=== PATIENT | male | born 1980 | race Caucasian/White ===

== ENCOUNTER 2016-07-03 12:09 | Emergency (ER) | payer OTHER ==
[~2016-07-03] VITALS: Ht 182.9 cm; Wt 86.9 kg
--- NOTE | 2016-07-03 13:16 | Diagnostic Imaging Report ---
EXAMINATION: Left shoulder, three views. COMPARISON: None. HISTORY: 36-year-old male, status post fall. Left shoulder and clavicle pain. FINDINGS: The acromioclavicular joint is normally aligned. There are no prominent acromioclavicular degenerative changes. The humeral head is normally positioned relative to the glenoid. The glenohumeral joint is unremarkable in appearance. There is no identified acute fracture. IMPRESSION: 1. Unremarkable left shoulder radiographs. Dictated by: Dictated on workstation # [id number]
--- NOTE | 2016-07-03 13:19 | Diagnostic Imaging Report ---
INDICATION: Left shoulder injury after a fall. FINDINGS: Two views of the left clavicle show no fracture or dislocation. IMPRESSION: Negative left clavicle. Dictated by: Dictated on workstation # [id number]
[2016-07-03 13:45] VITALS: BP 138/87
== END 2016-07-03 13:48 | disposition home or self-care (01) ==
LOC: ED 12:19
DX: S43.51XA Sprain of right acromioclavicular joint, initial encounter (principal); W01.198A Fall on same level from slipping, tripping and stumbling with subsequent striking against other object, initial encounter; Y92.89 Other specified places as the place of occurrence of the external cause; Y99.0 Civilian activity done for income or pay
CPT/HCPCS: 23540; 73000; 73030; 99283

== ENCOUNTER → 2016-07-03 | Outpatient (REF) | LOC: EUOP 12:23 | PROVIDERS: ATTEND Family Medicine | DX: Z02.89 Encounter for other administrative examinations (principal); Z02.83 Encounter for blood-alcohol and blood-drug test ==